=== PATIENT | female | born 1975 | race Hispanic/Latino ===

== ENCOUNTER 2021-07-16 05:30 | Day surgery (SDC) | payer BC ==
[~2021-07-16] VITALS: Ht 152.4 cm; Wt 73.5 kg
[~2021-07-16 05:30] MED LIST: BUSP15 PO; ESOM20CA31 PO; HYDR200T82 PO; L.AC1CAP6 PO
[2021-07-16] MEDS ORDERED: PROPOFOL 10 MG/ML 20ML VIAL IV ONE (06:07)
[2021-07-16] MEDS ORDERED: 0.9%NACL 1000ML 1,000 ML IV ONE (06:19)
[2021-07-16 06:46] VITALS: BP 112/70
[2021-07-16 07:26] VITALS: BP 77/41
[2021-07-16 07:31] VITALS: BP 87/44
[2021-07-16 07:36] VITALS: BP 100/64
[2021-07-16 07:41] VITALS: BP 99/58
[2021-07-16 07:51] VITALS: BP 108/72
== END 2021-07-16 07:55 | disposition home or self-care (01) ==
LOC: ENDO 05:30 → DAH 05:30 → ENDO 07:55
PROVIDERS: ATTEND Internal Medicine Gastroenterology
DX: R93.3 Abnormal findings on diagnostic imaging of other parts of digestive tract (principal); K80.20 Calculus of gallbladder without cholecystitis without obstruction; K21.9 Gastro-esophageal reflux disease without esophagitis; Z86.010 Personal history of colon polyps; F41.9 Anxiety disorder, unspecified; F32.9 Major depressive disorder, single episode, unspecified; Z90.49 Acquired absence of other specified parts of digestive tract; Z88.0 Allergy status to penicillin; Z88.1 Allergy status to other antibiotic agents; Z79.899 Other long term (current) drug therapy; Z20.822 Contact with and (suspected) exposure to COVID-19
CPT/HCPCS: 36415; 43237; 84703; 87635; A4215 ×2; A4221; A4222; A4223; A4606; A4620; A4657; A4663; C9803; J2704; J7030; 43259